=== PATIENT | female | born 1980 | race American Indian/Alaskan Native ===

== ENCOUNTER 2019-02-23 12:42 | Emergency (ER) | payer MEDICAID, OTHER ==
[2019-02-23 12:50] VITALS: BP 158/98
--- NOTE | 2019-02-23 12:51 | Emergency Department Report ---
Chief Complaint: Extremity Injury, Lower Stated Complaint: RT ANKLE SWOLLEN Time Seen by Provider: 02/23/19 12:48 - HPI History of Present Illness: This is a 38 y.o. F. that presents to the ER with pain and swelling to right ankle x 4 days. PMH Asthma. Current marijuana smoker. Denies injury. - Exam Vital Signs: Vital Signs 02/23/19 12:48 Temperature 97.9 F Pulse Rate 72 Respiratory 18 Rate Blood Pressure 158/98 O2 Sat by Pulse 100 Oximetry MSE screening note: Focused history and physical exam performed. Due to findings the following was ordered: This initial assessment/diagnostic orders/clinical plan/treatment(s) is/are subject to change based on patient's health status, clinical progression and re- assessment by fellow clinical providers in the ED. Further treatment and workup at subsequent clinical providers discretion. Patient/guardians urged not to elope from the ED as their condition may be serious if not clinically assessed and managed. Initial orders include: XR right ankle ED Disposition for MSE Condition: Stable
--- NOTE | 2019-02-23 13:39 | XRay Report ---
RIGHT ANKLE, 3 views: History: Swelling and pain. Bone mineralization is normal. No acute osseous abnormality or joint pathology is identified. The soft tissues are unremarkable. IMPRESSION: Right ankle within normal limits.
--- NOTE | 2019-02-23 14:35 | Emergency Department Report ---
ED Extremity Problem HPI - General Chief complaint: Extremity Injury, Lower Stated complaint: RT ANKLE SWOLLEN Time Seen by Provider: 02/23/19 12:48 Source: patient Mode of arrival: Ambulatory Limitations: No Limitations - History of Present Illness Initial comments: 38-year-old female with right ankle pain for approximately 6 months. Patient states the pain worsened over the last 3 days. 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 Reports she awoke this morning and the ankle was swollen, however has now resolved. Reports intermittent swelling. MD Complaint: joint swelling, joint paint -: month(s) (6) Location: right, other (ankle) History of Same: Yes -: Yes arthralgia Radiation: none Quality: aching Consistency: intermittent Improves with: immobilization, elevation Worsens with: weight bearing Associated Symptoms: denies other symptoms - Related Data Previous Rx's Medication Instructions Recorded Last Taken Type Naproxen [Naprosyn] 500 mg PO BID #20 tablet 02/23/19 Unknown Rx Allergies Allergy/AdvReac Type Severity Reaction Status Date / Time lidocaine Allergy Anaphylaxis Verified 02/23/19 12:43 ED Review of Systems ROS: Stated complaint: RT ANKLE SWOLLEN Other details as noted in HPI Comment: All other systems reviewed and negative Musculoskeletal: as per HPI, joint swelling, arthralgia ED Past Medical Hx - Past Medical History Hx Asthma: Yes - Surgical History Hx Breast Surgery: Yes (lumpectomy) - Social History Smoking Status: Never Smoker Substance Use Type: Alcohol, Marijuana - Medications Home Medications: Home Medications Medication Instructions Recorded Confirmed Last Taken Type Naproxen [Naprosyn] 500 mg PO BID #20 tablet 02/23/19 Unknown Rx ED Physical Exam - General Limitations: No Limitations General appearance: alert, in no apparent distress - Head Head exam: Present: atraumatic, normocephalic - Eye Eye exam: Present: normal appearance - ENT ENT exam: Present: mucous membranes moist - Neck Neck exam: Present: normal inspection - Respiratory Respiratory exam: Present: normal lung sounds bilaterally. Absent: respiratory distress - Cardiovascular Cardiovascular Exam: Present: regular rate, normal rhythm - GI/Abdominal GI/Abdominal exam: Present: soft. Absent: distended - Extremities Exam Extremities exam: Present: normal inspection, other (right ankle appears normal, no swelling, nontender to palpation, no erythema present) - Neurological Exam Neurological exam: Present: alert, oriented X3. Absent: motor sensory deficit - Psychiatric Psychiatric exam: Present: normal affect, normal mood - Skin Skin exam: Present: warm, dry, intact, normal color ED Course Vital Signs 02/23/19 12:48 Temperature 97.9 F Pulse Rate 72 Respiratory 18 Rate Blood Pressure 158/98 O2 Sat by Pulse 100 Oximetry ED Medical Decision Making - Radiology Data Radiology results: report reviewed, image reviewed - Differential Diagnosis arthritis, sprain, fracture Critical care attestation.: If time is entered above; I have spent that time in minutes in the direct care of this critically ill patient, excluding procedure time. ED Disposition Clinical Impression: Ankle pain, chronic Disposition: DC-01 TO HOME OR SELFCARE Is pt being admited?: No Condition: Stable Instructions: Osteoarthritis (ED), Arthralgia (ED) Prescriptions: Naproxen [Naprosyn] 500 mg PO BID #20 tablet Referrals: ALONSO RAZO MD [Staff Physician] - 3-5 Days Forms: Work/School Release Form(ED) Time of Disposition: 14:34
== END 2019-02-23 14:45 | disposition home or self-care (01) ==
LOC: ED 12:42
DX: M25.571 Pain in right ankle and joints of right foot (principal); G89.29 Other chronic pain; J45.909 Unspecified asthma, uncomplicated; F12.90 Cannabis use, unspecified, uncomplicated; Z88.4 Allergy status to anesthetic agent
CPT/HCPCS: 99283